=== PATIENT | female | born 1980 | race Caucasian/White ===

== ENCOUNTER 2018-03-06 13:44 | Emergency (ER) | payer OTHER ==
[~2018-03-06] VITALS: Ht 170.2 cm; Wt 95.3 kg
--- NOTE | 2018-03-06 13:44 | NUR ---
BROUGHT BACK TO BED #7 AND TRIAGED. REPORT GIVEN TO YAIMA
[2018-03-06 13:45] VITALS: BP_SYST 116
--- NOTE | 2018-03-06 14:00 | NUR ---
ER Dr. Rodríguez at bedside examining patient.
--- NOTE | 2018-03-06 14:10 | NUR ---
Pt complaining of severe headache with neck pain, and stated it "feels like a migraine". Pt is alert and oriented x 4, speaks Yor[place], and is cooperative. Pt reports being light sensitive r/t headache, no complaint of dixxyness, nausea or vomiting. Pt has a history of migraines but stated she has not experienced one in over a year. Last menstraul cycle 6 days ago.
[2018-03-06] MEDS ORDERED: ONDANSETRON HCL 4 MG/2 ML VIAL IVP ONE (14:15)
[2018-03-06] MEDS ORDERED: DIPHENHYDRAMINE INJ 50 MG/ML VIAL IVP ONE (14:15)
[2018-03-06] MEDS ORDERED: SUMAtriptan SUCCINATE 6 MG/0.5 ML VIAL SUBCUT ONE (14:15)
[2018-03-06] MEDS ORDERED: MORPHINE 4 MG/ML INJ. SYRINGE IVP ONE (14:15)
[2018-03-06] MEDS ORDERED: METOCLOPRAMIDE HCL 10 MG/2 ML VIAL IVP ONE (14:15)
[2018-03-06 14:16] LABS: BASOPHILS # (AUTO) 0.1 K/uL (0.0-0.2); BASOPHILS % (AUTO) 0.8 % (0.0-2.0); EOSINOPHILS # (AUTO) 0.3 K/uL (0.0-0.4); EOSINOPHILS % (AUTO) 4.7 % (0.0-4.0); HEMATOCRIT 37.5 % (36-48); HEMOGLOBIN 12.1 g/dL (12.0-16.0); LYMPHOCYTES % (AUTO) 27.9 % (20.5-51.5); MEAN CORPUSCULAR HEMOGLOBIN 29 pg (27-31); MEAN CORPUSCULAR HGB CONC 32 % (32-36); MEAN CORPUSCULAR VOLUME 88 fL (79.0-98.0); MONOCYTES # (AUTO) 0.5 K/uL (0.0-1.0); NEUTROPHILS # (AUTO) 4.2 K/uL (1.8-7.7); NEUTROPHILS % (AUTO) 59.6 % (40.0-70.0); PLATELET COUNT (AUTO) 205 K/uL (130-430); RED BLOOD CELL COUNT(AUTO) 4.26 MIL/uL (4.2-6.2); RED CELL DISTRIBUTION WIDTH 12.3 % (9.0-15.0); WHITE BLOOD COUNT (AUTO) 7.1 K/uL (4.8-10.8)
[2018-03-06 14:39] LABS: CALCIUM 9.1 mg/dL (8.4-11.0); CREATININE 0.83 mg/dL (0.55-1.30)
[2018-03-06 14:45] LABS: ALBUMIN 3.8 g/dL (3.4-4.8); TOTAL BILIRUBIN 0.4 mg/dL (0.0-1.0)
[2018-03-06] MEDS ORDERED: PROMETHAZINE HCL 50 MG/ML AMP IM ONE (16:15)
[2018-03-06] MEDS ORDERED: IBUPROFEN 800 MG TABLET PO ONE (16:15)
[2018-03-06 16:42] VITALS: BP_SYST 116
--- NOTE | 2018-03-06 16:44 | NUR ---
Patient given written and verbal discharge instructions and verbalizes understanding. ER MD discussed with patient the results and treatment provided. Patient in stable condition. ID arm band removed. Rx of Juliette, Motrin and Zofran given. Patient educated on pain management and to follow up with PMD. Pain Scale 3/10. Opportunity for questions provided and answered. Medication side effect fact sheet provided.
== END 2018-03-06 16:44 | disposition home or self-care (01) ==
LOC: SED 13:44
DX: R51 Headache (principal)
CPT/HCPCS: 36415; 70450; 80053; 81025; 85025; 96372; 99285; J2550; J3030